=== PATIENT | male | born 1995 | race African-American/Black ===

== ENCOUNTER 2018-07-13 18:27 | Emergency (ER) | payer MEDICAID ==
[~2018-07-13] VITALS: Ht 170.2 cm; Wt 86.0 kg
[2018-07-13] MEDS ORDERED: IBUPROFEN 600MG TABLET PO ONE (20:00)
[2018-07-13] MEDS ORDERED: HYDROCODONE/ACETAMINOPHEN 5/325MG TABLET PO ONE (22:30)
[2018-07-13 22:44] VITALS: BP 120/81
== END 2018-07-13 22:46 | disposition home or self-care (01) ==
LOC: ER 18:27
DX: S02.2XXA Fracture of nasal bones, initial encounter for closed fracture (principal); S09.8XXA Other specified injuries of head, initial encounter; F20.9 Schizophrenia, unspecified; Y04.0XXA Assault by unarmed brawl or fight, initial encounter; Y93.89 Activity, other specified; Y92.488 Other paved roadways as the place of occurrence of the external cause
CPT/HCPCS: 70486; 99284

== ENCOUNTER 2021-02-03 12:20 | Emergency (ER) | payer MEDICAID ==
[~2021-02-03] VITALS: Ht 182.9 cm; Wt 92.0 kg
[2021-02-03] MEDS ORDERED: TETANUS, DIPHTHERIA, PERTUSSIS VAC/PF 0.5ML (>7YR OLD) IM ONE (12:45)
[2021-02-03 13:02] VITALS: BP 136/70
== END 2021-02-03 13:17 ==
LOC: ER 13:06
DX: S40.852A Superficial foreign body of left upper arm, initial encounter (principal); S30.850A Superficial foreign body of lower back and pelvis, initial encounter; S20.451A Superficial foreign body of right back wall of thorax, initial encounter; F20.9 Schizophrenia, unspecified; F12.10 Cannabis abuse, uncomplicated; F10.10 Alcohol abuse, uncomplicated; Y90.9 Presence of alcohol in blood, level not specified; Z78.1 Physical restraint status; Y35.833A Legal intervention involving a conducted energy device, suspect injured, initial encounter; Y93.89 Activity, other specified; Y92.488 Other paved roadways as the place of occurrence of the external cause
CPT/HCPCS: 90471; 90715; 99284; Z7610; 99283